=== PATIENT | female | born 1980 | race Caucasian/White ===

== ENCOUNTER 2017-03-08 07:01 | Emergency (ER) | payer OTHER ==
[~2017-03-08] VITALS: Ht 160 cm; Wt 100.4 kg
[2017-03-08 09:33] VITALS: BP 133/81
== END 2017-03-08 09:33 | disposition home or self-care (01) ==
LOC: ED 07:01
DX: S70.11XA Contusion of right thigh, initial encounter (principal); W18.09XA Striking against other object with subsequent fall, initial encounter; Y93.89 Activity, other specified; Y99.8 Other external cause status; Y92.89 Other specified places as the place of occurrence of the external cause

== ENCOUNTER 2017-04-05 07:48 | Inpatient (IN) | payer OTHER ==
[~2017-04-05] VITALS: Ht 160 cm; Wt 59.6 kg
[2017-04-05 09:15] LABS: CALCIUM 7.5 mg/dL (8.5-10.1); CARBON DIOXIDE 23.6 mmol/L (21-32); CHLORIDE SERUM 104 mmol/L (98-107); CREATININE SERUM 0.6 mg/dL (0.6-1.0); GFR1 > 60 mL/min; GLUCOSE SERUM 137 mg/dL (74-106); POTASSIUM SERUM 3.3 mmol/L (3.5-5.1); SODIUM SERUM 136 mmol/L (136-145)
[2017-04-05 09:24] LABS: ALKALINE PHOSPHATASE 162 U/L (46-116); ALT/SGPT 32 U/L (14-59); AST/SGOT 117 U/L (15-37); BILIRUBIN TOTAL 2.34 mg/dL (0.20-1.00); LIPASE 169 IU/L (73-393)
[2017-04-05 09:29] LABS: ALBUMIN 1.7 g/dL (3.4-5.0); AMYLASE 16 U/L (25-115); BASOPHIL % 0.3 % (0-2); RED CELL DISTRIBUTION WIDTH 13.7 % (11.5-14.5); TOTAL PROTEIN, SERUM 8.6 g/dL (6.4-8.2)
[2017-04-05 09:31] LABS: PLATELET COUNT 88 x10^3mcL (130-400)
[2017-04-05 09:46] LABS: microscopic required? YES; urine erythrocyte TRACE (NEGATIVE)
[2017-04-05 13:32] LABS: T3 TOTAL 0.77 ng/mL
[2017-04-05 13:52] LABS: MAGNESIUM 1.7 mg/dL (1.8-2.4); PHOSPHOROUS 3.7 mg/dL (2.5-4.9)
[2017-04-05 13:53] LABS: CHOLESTEROL/HDL RATIO 4.3
[2017-04-05 14:03] LABS: FREE T4 1.35 ng/dL (0.76-1.46); FREE THYROXINE INDEX 2.7 ug/dL (1.4-4.5); T4(THYROXINE) 6.5 ug/dL (4.7-13.3)
[2017-04-05 14:07] VITALS: BP 141/79
[2017-04-05 18:03] VITALS: BP 130/66
[2017-04-05 21:23] VITALS: BP 140/74
[2017-04-06 05:52] VITALS: BP 128/77
[2017-04-06 06:33] LABS: BASOPHIL % 0.3 % (0-2); RED CELL DISTRIBUTION WIDTH 13.7 % (11.5-14.5)
[2017-04-06 06:48] LABS: PLATELET COUNT 96 x10^3mcL (130-400)
[2017-04-06 06:50] LABS: CALCIUM 7.5 mg/dL (8.5-10.1); CARBON DIOXIDE 24.6 mmol/L (21-32); CHLORIDE SERUM 105 mmol/L (98-107); CREATININE SERUM 0.6 mg/dL (0.6-1.0); GFR1 > 60 mL/min; GLUCOSE SERUM 120 mg/dL (74-106); MAGNESIUM 2.3 mg/dL (1.8-2.4); POTASSIUM SERUM 3.9 mmol/L (3.5-5.1); SODIUM SERUM 136 mmol/L (136-145)
[2017-04-06 09:34] VITALS: BP 128/73
[2017-04-06 12:30] VITALS: BP 115/57
[2017-04-06 17:13] VITALS: BP 131/71
[2017-04-06 22:03] VITALS: BP 131/71
[2017-04-07 08:56] LABS: BASOPHIL % 0.5 % (0-2)
[2017-04-07 09:45] LABS: CALCIUM 7.7 mg/dL (8.5-10.1); CARBON DIOXIDE 23.1 mmol/L (21-32); CHLORIDE SERUM 106 mmol/L (98-107); CREATININE SERUM 0.6 mg/dL (0.6-1.0); GFR1 > 60 mL/min; GLUCOSE SERUM 104 mg/dL (74-106); POTASSIUM SERUM 3.9 mmol/L (3.5-5.1); SODIUM SERUM 138 mmol/L (136-145)
[2017-04-07 10:03] LABS: PLATELET COUNT 101 x10^3mcL (130-400)
[2017-04-07 13:55] VITALS: BP 100/62
[2017-04-07] MEDS ORDERED: THI100 PO (16:49)
[2017-04-07] MEDS ORDERED: FOL1 PO (16:50)
[2017-04-07] MEDS ORDERED: THERAGRAN-M1 TA4 PO (16:51)
[2017-04-07] MEDS ORDERED: LAC30L PO (16:54)
[2017-04-07] MEDS ORDERED: BIA500 PO (17:17)
[2017-04-07] MEDS ORDERED: AMO500 PO (17:17)
[2017-04-07] MEDS ORDERED: PRI20 PO (17:18)
[2017-04-07] MEDS ORDERED: LAC PO (17:19)
[2017-04-07] MEDS ORDERED: ZOF4 PO (17:20)
[2017-04-07] MEDS ORDERED: IND20 PO (17:26)
[2017-04-07] MEDS ORDERED: ALD25 PO (17:28)
[2017-04-07 18:07] VITALS: BP 100/65
[2017-04-07 18:26] VITALS: BP 100/65
== END 2017-04-07 19:09 | disposition home or self-care (01) | DRG 950 ==
LOC: ED 07:48 → DU 12:16
PROVIDERS: Emergency Medicine; Internal Medicine Gastroenterology; ADMIT Family Medicine
PROC: 06L34CZ Occlusion of Esophageal Vein with Extraluminal Device, Percutaneous Endoscopic Approach (ICD-10-PCS; principal; 2017-04-06 13:00)
PROC: 0DB68ZX Excision of Stomach, Via Natural or Artificial Opening Endoscopic, Diagnostic (ICD-10-PCS; 2017-04-06 13:00)
DX: K70.31 Alcoholic cirrhosis of liver with ascites (principal); E43 Unspecified severe protein-calorie malnutrition; K76.6 Portal hypertension; D69.59 Other secondary thrombocytopenia; I85.00 Esophageal varices without bleeding; E83.42 Hypomagnesemia; E83.51 Hypocalcemia; K72.90 Hepatic failure, unspecified without coma; L03.311 Cellulitis of abdominal wall; F10.20 Alcohol dependence, uncomplicated; D53.9 Nutritional anemia, unspecified; E87.6 Hypokalemia; D73.89 Other diseases of spleen; K42.9 Umbilical hernia without obstruction or gangrene; Z68.23 Body mass index [BMI] 23.0-23.9, adult; Z90.49 Acquired absence of other specified parts of digestive tract; D75.89 Other specified diseases of blood and blood-forming organs
CPT/HCPCS: 43235; 83880; 84439; G0480; J0690; J1200; J1610; J1940; J2250; J2310; J3010; J3475; J3490; J7030; Q0092; Q9967

== ENCOUNTER 2018-02-25 09:59 | Emergency (ER) | payer OTHER ==
[~2018-02-25] VITALS: Ht 160 cm; Wt 103.6 kg
[~2018-02-25 09:59] MED LIST: ALD25 PO; AMO500 PO; BIA500 PO; FOL1 PO; IND20 PO; LAC PO; LAC30L PO; PRI20 PO; THERAGRAN-M1 TA4 PO; THI100 PO; ZOF4 PO
[2018-02-25 11:41] VITALS: BP 140/91
== END 2018-02-25 11:41 | disposition home or self-care (01) ==
LOC: ED 09:59
DX: L03.116 Cellulitis of left lower limb (principal); R73.9 Hyperglycemia, unspecified; K74.60 Unspecified cirrhosis of liver; E66.01 Morbid (severe) obesity due to excess calories